=== PATIENT | female | born 1945 | race Caucasian/White ===

== ENCOUNTER 2018-12-04 11:13 | Day surgery (SDC) | payer BC, SELFPAY ==
[2018-12-04] VITALS (7 sets, daily range): BP systolic 115–136; BP diastolic 67–88; PULSE 3–73; RESP 12–17; TEMP 36.1–36.3; O2SAT 92–99; BMI 29.4
--- NOTE | 2018-12-04 | PATH_ITS ---
[facility] Accession Number: [id number] . 01 Material submitted: . PART A: esophagus - ESOPHAGEAL BIOPSY PART B: esophagus - ESOPHAGEAL BIOPSY . 01 Clinical history: . 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 02 Diagnosis: A. Esophagus, Biopsy: Squamocolumnar junctional mucosa with increased intraepithelial eosinophils (greater than 50 per high-power field). Please see comment. Negative for intestinal metaplasia. Negative for dysplasia and malignancy. . B. Esophagus, Biopsy: Squamous mucosa with increased intraepithelial eosinophils (greater than 50 per high-power field). Please see comment. Negative for dysplasia and malignancy. [facility] 12/05/2018 1359 Local . 02 Comment: A-B: In the proper clinical setting, the histopathologic appeearance would support a clinical impression of eosinophilic esophagitis. The differential diagnosis also includes drug reaction, gastroesophageal reflux, and food allergies. . 02 Electronically signed: . Candis Perez MD, Pathologist NPI- [id number] . 01 Gross description: . Part A: ESOPHAGEAL BIOPSY: Received in formalin are 2 fragment(s) of ro, soft tissue measuring 0.1 x 0.1 x 0.1 cm to 0.2 x 0.2 x 0.2 cm which is entirely submitted and submitted entirely in 1 cassette(s) Part B: ESOPHAGEAL BIOPSY: Received in formalin are 3 fragment(s) of ro, soft tissue measuring 0.1 x 0.1 x 0.1 cm to 0.2 x 0.1 x 0.1 cm which is entirely submitted and submitted entirely in 1 cassette(s) /[facility] [place] 12/04/2018 2233 Local . 02 Pathologist provided ICD-10: K20.0 . 02 CPT . 689385, [id number] Performed at: 01 [facility] [address] [place] [address], [place], [place] [id number] MD José Miguel Holloway MD Phone: [phone] Performed at: [facility] [address] [place], [place] [id number] MD Candis Perez MD Phone: [phone]
[2018-12-04] MEDS: SODIUM CHLORIDE 0.9% 1,000 ML 42 ML IV (12:08)
--- NOTE | 2018-12-04 13:02 | PM.HP.1 ---
History of Present Illness History of Present Illness Date Patient Seen: 12/04/18 Time Patient Seen: 13:02 Chief complaint: [id number] Narrative: GE reflux and probably eosinophilic esophagitis. Need for further delineation. Patient History Social History household members: family Family & Social History Social History: household members family Meds Home Medications and Allergies Allergies Allergy/AdvReac Type Severity Reaction Status Date / Time No Known Drug Allergies Allergy Verified 12/04/18 12:07 Exam Vital Signs (past 8 hours): - 12/04/18 11:52 Temperature 97.1 F L Pulse Rate 3 L Respiratory Rate 16 Blood Pressure 126/77 Pulse Oximetry 93 Oxygen Delivery Method Room Air Narrative Exam Narrative: Oropharynx free of lesions Chest clear to auscultation and percussion Cardiac exam reveals no S3 or murmur Assessment & Plan Assessment & Plan narrative: Possible eosinophilic esophagitis on top of reflux on chronic omeprazole. Need for follow-up endoscopy to sort this out. Patient will have upper endoscopy performed. Risks, benefits, alternatives have been explained. Biopsies will be taken for eosinophilic esophagitis and we will subsequently decide on appropriate treatment course.
--- NOTE | 2018-12-04 13:04 | PM.OP.ENDO ---
Operative Date/Time/Diagnoses Date of procedure: 12/04/18 Time of procedure: 13:04 Pre-op diagnosis: See indication and findings Procedure & Clinicians Study performed: EGD Same procedure as scheduled: Yes Surgeon: Ethan Guajardo Procedure Notes Procedure in detail: After informed consent was obtained the patient was placed in left lateral decubitus position. The video upper scope was placed into the oropharynx with the patient's health swallowed into the esophagus. The esophagus stomach and duodenum were carefully examined. On withdrawal retroflexed view the GE junction was performed. The scope was removed. The patient tolerated procedure well. Blood loss none Complications none Sedation Total sedation time 10 minutes Versed 2 mg fentanyl 100 mg IV titration Findings 1. Substantial semi healed areas of erythema and flattening in the esophagus from 30-34 cm. Wide open gastroesophageal junction at 34 cm. Biopsies taken near the GE junction to rule out Dumont's esophagus. Biopsies taken above the GE junction areas do not appear to have this characteristic to rule out eosinophilic esophagitis. 2. Moderate hiatal hernia 34-38 cm no clear Mark lesions seen 3. Multiple fundic gland polyps in the body 4. Otherwise negative EGD including duodenum We will merely await results of the pathology and talk to her by telephone regarding medications. Currently taking omeprazole once daily
[2018-12-04] MEDS: fentaNYL 250 MCG/5 ML INJ IV (13:53)
[2018-12-04] MEDS: MIDAZOLAM 5 MG/5 ML VIAL IV (13:53)
--- NOTE | 2018-12-04 14:08 | SUR.PHASEI ---
arouses easily, declined fluids initially, desires to sleep. passing flatus.
--- NOTE | 2018-12-04 14:14 | SUR.PHASEI ---
drowsy, HOB elevated, ice chips given; tolerated well.
--- NOTE | 2018-12-04 14:34 | SUR.PHASEII ---
To OPD, feels ready to go home. Tolerating sips and chips well. Denies pain, nausea, lightt-headedness. Stable. IV dc'd and clothes given.
== END 2018-12-04 14:34 | disposition home or self-care (01) ==
PROVIDERS: PCP Family Medicine; Visit Provider Internal Medicine Gastroenterology
PROC: 0DJ08ZZ Inspection of Upper Intestinal Tract, Via Natural or Artificial Opening Endoscopic (ICD-10-PCS; CPT 43235; principal; 2018-12-04 13:00)
DX: K20.0 Eosinophilic esophagitis (principal); K21.9 Gastro-esophageal reflux disease without esophagitis; K44.9 Diaphragmatic hernia without obstruction or gangrene; K31.7 Polyp of stomach and duodenum
CPT/HCPCS: 43239; J2250; J3010